=== PATIENT | male | born 1950 | race Caucasian/White ===

== ENCOUNTER → 2017-03-11 | Outpatient (CLI) | payer OTHER ==
--- NOTE | 2017-03-11 11:57 | REP ---
MAXILLOFACIAL CT WITHOUT CONTRAST: HISTORY: Salivary gland mucocele. Small bilateral Troy cells are present. Minimal mucosal thickening is present in the maxillary sinuses. The remaining sinuses are clear. The osteomeatal units are patent. The middle and inferior nasal turbinates are partially paradoxical. There is minimal deviation of the nasal septum to left. A spur is present arising from the left side of the nasal septum. The cribriform plate, medial pagan of the orbits and optic canals are intact. The carotid canals form a segment of the posterolateral pagan of the sphenoid sinus. The sphenoid sinus septa insert into the internal carotid canal pagan. Calcification is present in the left tonsil. This is secondary to previous inflammatory disease. The salivary glands are normal in size and density. Calcifications are present in the tongue several of which are in the region of the bilateral Merced's duct. Small lymph nodes less than 1 cm in size are present in the internal jugular chains, posterior triangles and submandibular areas. IMPRESSION: 1. Sinus mucosal thickening as described above. 2. Calcifications are present in the tongue several of which are present in the region of the bilateral Merced's duct. Signed by Kd Calderon MD 03/11/2017 12:02 P
== END ==
LOC: M RAD 10:07
PROVIDERS: ATTEND Otolaryngology
DX: K11.6 Mucocele of salivary gland (principal)

== ENCOUNTER 2017-05-19 10:48 | Day surgery (SDC) | payer OTHER ==
[~2017-05-19] VITALS: Ht 170.2 cm; Wt 89.8 kg
[~2017-05-19 10:48] MED LIST: ASPI1CHW2 PO; FISH1000 PO; SIMV40TA2 PO; SYNT25TA PO; TOPR25TA PO
[2017-05-19] MEDS ORDERED: LR 1,000 ML IV ONE (11:00)
[2017-05-19] MEDS ORDERED: MIDAZOLAM INJ 2 MG/2 ML VIAL (J2250) As Ordered ONE (11:54)
[2017-05-19] MEDS ORDERED: fentaNYL 100 MCG/2 ML INJECTION (J3010) As Ordered ONE ×2 (11:55→13:18)
[2017-05-19] MEDS ORDERED: LIDOCAINE W/EPINEPHRINE 1% 20ML VIAL As Ordered ONE (11:58)
[2017-05-19] MEDS ORDERED: EPINEPHrine 1MG/ML INJ 30ML MD-VIAL As Ordered ONE (11:58)
[2017-05-19] MEDS ORDERED: METHYLENE BLUE 0.5% (5MG/ML) 10 ML AMP (PROVAYBLUE)(Q9968 PER 1MG) As Ordered ONE (11:58)
[2017-05-19] MEDS ORDERED: PROPOFOL 200 MG/20 ML VIAL As Ordered ONE (12:46)
[2017-05-19] MEDS ORDERED: ONDANSETRON 4MG/2ML VIAL (J2405) As Ordered ONE (12:46)
[2017-05-19] MEDS ORDERED: LIDOCAINE 2% INJ 100 MG/5 ML SDV (FOR ANES.) As Ordered ONE (12:46)
[2017-05-19] MEDS ORDERED: ROCURONIUM BROMIDE 50 MG/5 ML VIAL As Ordered ONE (12:46)
[2017-05-19] MEDS ORDERED: dexameTHASONE 4 MG/ML 1ML VIAL (J1100) As Ordered ONE (12:46)
[2017-05-19] MEDS ORDERED: NEOSTIGMINE 10 MG/10 ML VIAL (J2710) As Ordered ONE (12:48)
[2017-05-19] MEDS ORDERED: GLYCOPYRROLATE INJ 0.2 MG/ML 2 ML VIAL As Ordered ONE (12:48)
[2017-05-19] MEDS ORDERED: ACETAMINOPH W/CODEINE #3 TAB UD PO PRN (14:30)
[2017-05-19] MEDS ORDERED: LR 1,000 ML IV SCH ×2 (14:30)
[2017-05-19] MEDS ORDERED: fentaNYL 100 MCG/2 ML INJECTION (J3010) IV PRN (14:30)
[2017-05-19] MEDS ORDERED: ONDANSETRON 4MG/2ML VIAL (J2405) IV PRN (14:30)
[2017-05-19 15:45] VITALS: BP 113/56
--- NOTE | 2017-05-20 10:13 | RO ---
DATE OF PROCEDURE: 05/19/2017 PREPROCEDURE DIAGNOSIS: Ranula floor of mouth. 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 PROCEDURE: Tumor floor of mouth excision SURGEON: Dr. Hayden De La O DECORATING MACHINE OPERATOR: Adam Gerber. ANESTHESIA: ESTIMATED BLOOD LOSS: DESCRIPTION OF OPERATION: Under general anesthesia with the patient intubated nasally, patient draped in the usual manner. I used a bite block which was removed at the end of the procedure. Using cautery, I made an incision around the lesion. I dissected the mucosa off of the lesion. It was a vascular lesion. It was lobulated floor of the mouth extending a bit more posteriorly. Still using cautery and blunt dissection, I resected it. As I got to the base of it, there was a stone likely from the submandibular duct. This was removed. There was another stone in the floor of the mouth. There was a stone within the specimen itself. The specimen was removed. Bleeding was controlled with cautery. I sutured the area closed except for an area left open with 3-0 Chromic. Patient tolerated the procedure well. Patient extubated, transferred to the recovery room in excellent condition. LUIS
== END 2017-05-19 16:00 | disposition home or self-care (01) ==
LOC: M SDC 10:48
PROVIDERS: ATTEND Otolaryngology
DX: K11.6 Mucocele of salivary gland (principal); I10 Essential (primary) hypertension; E78.00 Pure hypercholesterolemia, unspecified; I35.9 Nonrheumatic aortic valve disorder, unspecified; E03.9 Hypothyroidism, unspecified; D64.9 Anemia, unspecified; G47.30 Sleep apnea, unspecified; R73.01 Impaired fasting glucose; J30.9 Allergic rhinitis, unspecified; Z88.0 Allergy status to penicillin; Z88.8 Allergy status to other drugs, medicaments and biological substances; R01.1 Cardiac murmur, unspecified; I25.10 Atherosclerotic heart disease of native coronary artery without angina pectoris; Z79.899 Other long term (current) drug therapy; Z79.82 Long term (current) use of aspirin; Z87.891 Personal history of nicotine dependence
CPT/HCPCS: 42408; 88305; J1100; J2250; J2405; J2710; J3010